=== PATIENT | female | born 1990 | race Caucasian/White ===

== ENCOUNTER 2024-09-23 15:03 | Emergency (ER) | payer OTHER, SELFPAY ==
[2024-09-23 15:18] VITALS: BP 123/88
[2024-09-23 16:00] VITALS: BP 126/84; BMI 42.9
--- NOTE | 2024-09-23 16:30 | EDRN ---
Received patient sitting on bed. Patient is calm and cooperative. Patient stated that she has a computer voice in her head 'telling me to kill myself by taking an overdose of aspirin or Tylenol or drink myself to '. Patient stated that she is
'scared to kill myself but I did buy a family size bottle of aspirin to take if I could do it.' Patient is willing to go to inpatient program.
[2024-09-23 16:37] LABS: % Basophils 0.3 % (0-2); % Immature Granulocytes 0.5 % (0-0.5); % Lymphocytes 20.1 % (20.5-51.1); % Monocytes 4.7 % (1.7-9.3); % Neutrophils 73.4 % (42.2-75.2); Absolute Eosinophils 0.1 10^3/uL (0-0.7); Absolute Immature Granulocytes 0.1 10^3/uL (0-0.05); Absolute Lymphocytes 2.7 10^3/uL (1.2-3.4); Absolute Monocytes 0.6 10^3/uL (0.1-0.6); Absolute Neutrophils 9.8 10^3/uL (1.4-6.5); Hematocrit 41.3 % (37.0-47.0); Hemoglobin 13.7 g/dL (12.0-16.0); Mean Corp Hgb Conc. 33.2 g/dL (33.0-37.0); Mean Corpuscular Hgb 27.3 pg (27.0-31.0); Mean Corpuscular Volume 82.3 fL (81.0-99.0); Mean Platelet Volume 10.3 fL (7.4-10.4); Nucleated Red Blood Cells % 0 %; Platelet Count 336 10^3/uL (130-400); Red Blood Cell Count 5.02 10^6/uL (4.20-5.40); White Blood Cell Count 13.4 10^3/uL (4.8-10.8)
[2024-09-23 16:44] LABS: HCG, Serum Qualitative Screen Negative
[2024-09-23 16:48] LABS: ALT (SGPT) 30 U/L (0-35); AST (SGOT) 29 U/L (14-36); Acetaminophen < 10 ug/ml (10-30); Albumin 4.2 g/dl (3.5-5.0); Alkaline Phosphatase 111 U/L (38-126); Blood Urea Nitrogen 9 mg/dl (7-17); Calcium 9.5 mg/dl (8.4-10.2); Carbon Dioxide 26 mmol/L (22-30); Chloride 109 mmol/L (98-107); Glucose 93 mg/dl (70-99); Salicylate < 1.0 mg/dl (2.0-20.0); Sodium 143 mmol/L (135-145); Total Bilirubin 0.6 mg/dl (0.2-1.3); Total Protein 7.6 g/dl (6.3-8.2); eGFR > 60.00
[2024-09-23 16:50] LABS: Alcohol None Detected
--- NOTE | 2024-09-23 17:25 | ED.GENMED ---
History of Present Illness
General
Chief Complaint: Crisis Evaluation
Time Seen by Provider: 09/23/24 16:03
History of Present Illness
History of Present Illness:
TIME OF INITIAL ENCOUNTER:
HPI: Patient presents due to suicidal ideation. The patient states that she was listening to music with a friend and then started hearing voices telling her to commit suicide. She was told to overdose by these voices. She still feels suicidal.
She has been having issues with depression and has been having a poor relationship with her 17-year-old daughter. The patient denies actually taking anything to commit suicide. She states that she has had suicide attempt a few months ago and was
hospitalized at [facility]. She has no other specific complaints.
EXAM:
GENERAL: Well appearing in no distress, elevated BMI
HEENT: Moist oral mucosa
CARDIOVASCULAR: No murmurs, normal heart rate, regular rhythm, No chest wall tenderness
PULMONARY: No respiratory distress, breath sounds are clear and equal
ABDOMEN: Soft with no peritoneal signs, no tenderness
NEUROLOGIC: Excellent strength all extremities, no coordination deficits
PSYCHIATRIC: Somewhat of a flat depressed affect appropriate mental status, normal insight and judgement
EXTREMITIES: Nontender, no edema, moves all extremities equally
SKIN: No rash, no lesions
NUMBER AND COMPLEXITY OF PROBLEMS ADDRESSED AT THE ENCOUNTER
� Chronic conditions affecting care: Depression, patient denies any other psychiatric diagnosis
� Acute Exacerbation and/or Progression of Chronic Illness: This is an acute but recurring problem
� Differential Diagnosis includes: Suicidal ideation, overdose, alcohol intoxication
AMOUNT AND/OR COMPLEXITY OF DATA TO BE REVIEWED AND ANALYZED
� I performed an independent evaluation of and my interpretation is:
EKG:
CT:
X-rays:
Laboratory Studies: White count 13.4, hemoglobin normal, chemistries unremarkable, hCG negative, salicylates and acetaminophen undetected, alcohol undetected, UDS negative
Other:
� Review of other/old records: I reviewed records, the only other records in the chart is a prehospital care form indicating it at that time in 2021 he was suicidal and also felt homicidal. She was transported to [facility]
behavioral health at that time.
� Clinical information was obtained by an independent historian: None needed
� Prescriptions/Medications Considered but not given:
� Further testing considered but not performed:
RISK OF COMPLICATIONS AND/OR MORBIDITY OR MORTALITY OF PATIENT MANAGEMENT
� Social determinants of health affecting care: Lives at home
� Discussion with other providers: I spoke to crisis who is bed searching
� Escalation of care including admission/observation vs risk of discharge considered: Planning psychiatric hospitalization as a 201
ANY OTHER UPDATES:
7 PM: I spoke to crisis�crisis states that she is excepted at [place] and should be leaving around 8:30 PM by acute care.
Phy Exam
Physical Exam
Physical Exam:
See HPI
Course
Orders/Labs/Results
Orders:
Orders
09/23/24 15:24
1:1 Observation - Suicide/ Violent Behavior As Directed
Crisis Consult Urgent
Reason for Consult: + SI
09/23/24 16:04
Test Result ONCE
09/23/24 16:23
Acetaminophen Urgent
Alcohol Urgent
Complete Blood Count/With Diff Urgent
Comprehensive Metabolic Panel Urgent
HCG, Serum Qualitative Screen Urgent
Salicylate Urgent
09/23/24 17:14
Drug Screen, Urine [Urine Drug Abuse Screen] Urgent
Date Specimen was Collected: 09/23/24
Time Specimen was Collected: 17:07
Abnormal Lab Results
09/23/24
16:23
WBC 13.4 H 10^3/uL
(4.8-10.8)
Abs Immat Gran (auto) 0.1 H 10^3/uL
(0-0.05)
Absolute Neuts (auto) 9.8 H 10^3/uL
(1.4-6.5)
Lymphocytes % 20.1 L %
(20.5-51.1)
Chloride 109 H mmol/L
(98-107)
Salicylates < 1.0 L mg/dl
(2.0-20.0)
Acetaminophen < 10 L ug/ml
(10-30)
09/23/24 16:23
09/23/24 16:23
Vital Signs
Initial and Last Documented VS:
Initial Vital Signs
Temp Pulse Resp BP Pulse Ox
36.8 C 105 18 123/88 96
09/23/24 15:18 09/23/24 15:18 09/23/24 15:18 09/23/24 15:18 09/23/24 15:18
Last Documented Vital Signs
Temp Pulse Resp BP Pulse Ox
36.8 C 82 16 126/84 97
09/23/24 15:18 09/23/24 16:00 09/23/24 16:00 09/23/24 16:00 09/23/24 16:00
*Critical Care Note
Total Time (30-74mins, 75-104mins- exclusive of procedures): Not Applicable
ED Attending Note
-
Portions of this chart may have been created with voice recognition software.� Occasional wrong word or��sound alike� substitutions may have occurred due to the inherent limitations of voice recognition software.
Discharge Plan
Departure
Patient Disposition: Acute Rehab Facility
Date of Disposition: 09/23/24
Time of Disposition: 17:30
Discharge Problem:
Depression with suicidal ideation
Prescriptions:
No Action
venlafaxine [Effexor XR] 75 mg Capsule,Extended Release 24hr
75 mg PO HS
Patient Comments:
09/23/24- no ecw no pharamcy fills, patient does not know her pharamcy for me to call
Interventions
Interventions:
*Risk Screen - Suicide Last Done: 09/23/24 15:18
*General Assessment Last Done: 09/23/24 15:18
*Neglect/Abuse Screening Last Done: 09/23/24 15:18
*ED- Fall Risk Assessment Last Done: 09/23/24 16:00
*ED COVID-19 Vaccine History Last Done: 09/23/24 16:00
ED-Psychological Assessment Last Done: 09/23/24 16:00
Discharge Date and Time
Print Language: HAITIAN
[2024-09-23 17:47] LABS: Amphetamines Negative (Negative); Barbiturates Negative (Negative); Benzodiazepines Negative (Negative); Buprenorphine Negative (Negative); Cocaine Negative (Negative); Marijuana Negative (Negative); Methadone Negative (Negative); Methamphetamines Negative (Negative); Opiates Negative (Negative); Phencyclidine Negative (Negative); Tricyclic Antidepressants Negative (Negative)
[2024-09-23 19:59] VITALS: BP 121/81
== END 2024-09-23 20:06 ==
LOC: EMR 15:03
PROVIDERS: EMERGENCY PHYSICIAN Emergency Medicine; FAMILY PHYSICIAN Family Medicine
DX: F32.A Depression, unspecified (principal); R45.851 Suicidal ideations; Z91.51 Personal history of suicidal behavior
CPT/HCPCS: 99285; 80053; 80143; 80179; 80306; 82077; 84703; 85025